=== PATIENT | female | born 1975 | race Caucasian/White ===

== ENCOUNTER 2022-03-08 19:31 | Emergency (ER) | payer OTHER, SELFPAY ==
[2022-03-08 19:38] VITALS: BP 158/104; PULSE 95; RESP 16; TEMP 36.2; O2SAT 98
--- NOTE | 2022-03-08 19:40 | ED.GENADULT ---
HPI - General Adult General Chief complaint: Unspecified Stated complaint: Blood Sugar Problem Time Seen by Provider: 03/08/22 19:40 Source: patient, RN notes reviewed and old records reviewed Mode of arrival: ambulatory Limitations: no limitations History of Present Illness HPI narrative: 47-year-old female who presents to [facility] with complaints having 400 blood sugar reading this morning. Patient states she rechecked her blood sugar 2 hours later around 0700 and was still at 400, she states that this afternoon her sugar was 360. Patient previously was being followed for her diabetes at [facility] but has been waiting for a new appointment at [facility] which has taken several month to get in and appoint is next week. Patient was previously on Trulicity but states that she has not taken it since the spring and does not routinely check her sugars daily. States that she was urinating more frequently today and her mouth was dry is why she checked her sugar today.Blood sugar per fingerstick at 1944 was 281. MD complaint: elevated blood sugar Treatments prior to arrival: none Related Data Home Medications Medication Instructions Recorded Confirmed dulaglutide 1.5 mg/0.5 mL See Rx Instructions .Route .COMPLEX 03/08/22 03/08/22 subcutaneous pen injector (Trulicity) Allergies Allergy/AdvReac Type Severity Reaction Status Date / Time No Known Allergies Allergy Unverified 11/19/15 18:11 Review of Systems Review of Systems: CONSTITUTIONAL: Denies fever, chills, or sweats. EYES: Denies visual changes, redness, or discharge. ENT: Denies rhinorrhea, congestion, sore throat, or otalgia. CARDIOVASCULAR: Denies chest pain, palpitations, or edema. RESPIRATORY: Denies cough or dyspnea. GASTROINTESTINAL: Denies abdominal pain, nausea, vomiting, or diarrhea. GENITOURINARY: Denies dysuria or hematuria.states increased urination today and dry mouth SKIN: Denies rash or itching. MUSCULOSKELETAL: Denies back pain, joint pain, or myalgia. NEUROLOGIC: Denies headache, numbness, or weakness. PSYCHIATRIC: Denies anxiety or depression. All systems reviewed & are unremarkable except as noted in HPI and below PMFSH Past Medical History Medical History (Updated 03/13/22 @ 11:45 by Ingris Browne NP) Diabetes Elevated glucose level Thyromegaly Surgical History Surgical History (Updated 03/13/22 @ 11:46 by Ingris Browne NP) Previous section Family History Family History Father Family history of mental disorder Patient's father is in good health Family history of type 2 diabetes mellitus Mother Patient's mother is in good health Grandparent Cerebrovascular accident Social History Social History Smoking status: Never smoker Second hand tobacco smoke exposure: No Alcohol intake: never Comments At time of signature, agree with nursing past medical, surgical, social and family history. There is no relevant family history pertinent to the presenting complaint Exam Narrative: GENERAL: Well-appearing, well-nourished,obese, and in no acute distress. HEAD: Normocephalic, atraumatic. EYES: PERRLA and EOMI. ENT: Nares clear, no rhinorrhea or epistaxis. Mucous membranes moist. NECK: Supple.no lymphadenopathy CHEST: Clear to auscultation. No respiratory distress.SAO2 98% on room air HEART: Regular rate and rhythm. No murmur heard. Normal peripheral pulses. ABDOMEN: Soft, nontender, nondistended, normal active bowel sounds. EXTREMITIES: Normal range of motion. No edema. SKIN: Warm, dry, no rash. NEURO: No focal deficits. Alert and oriented x3. Course Course Emergency Course: Patient is aware of diagnosis, understands and agrees to treatment plan.? Anticipatory guidance given.? Patient agrees to follow-up as directed and is aware of reasons to seek care at t
[2022-03-08 19:47] LABS: Glucose Point of Care 281 mg/dl (65-105)
== END 2022-03-08 20:12 | disposition home or self-care (01) ==
PROVIDERS: Emergency Provider Registered Nurse
DX: E11.65 Type 2 diabetes mellitus with hyperglycemia (principal); Z91.14 Patient's other noncompliance with medication regimen
CPT/HCPCS: 82948; 99203; G0463